=== PATIENT | male | born 1965 ===

== ENCOUNTER 2017-07-05 06:48 | Day surgery (SDC) | payer MEDICARE ==
[2017-06-30 12:36] VITALS: BMI 27.8
[2017-07-05] MEDS ORDERED: Propofol 10 mg/ml Inj (20 ML) ONE (09:50)
[2017-07-05] MEDS ORDERED: Lactated Ringer's 1,000 ML IV ONE (09:53)
[2017-07-05 10:26] VITALS: TEMP 97.8
[2017-07-05 11:06] VITALS: BP 109/66; PULSE 67; RESP 14; O2SAT 99
== END 2017-07-05 11:15 | disposition home or self-care (01) ==
LOC: C.ENDO 06:48
PROVIDERS: ATTEND Internal Medicine Gastroenterology
DX: K29.70 Gastritis, unspecified, without bleeding (principal); K21.9 Gastro-esophageal reflux disease without esophagitis
CPT/HCPCS: 43239; 82948; 88305; J2001; J2704; J7120

== ENCOUNTER 2018-02-23 11:22 | Day surgery (SDC) | payer MEDICARE ==
[2018-02-19 13:30] VITALS: BMI 32.9
[2018-02-23 12:55] VITALS: O2SAT 100
[2018-02-23] MEDS ORDERED: Midazolam 2 MG/2 ML VIAL ONE (13:16)
[2018-02-23] MEDS ORDERED: Propofol 10 mg/ml Inj (20 ML) ONE (13:16)
[2018-02-23] MEDS ORDERED: ceFAZolin 1 gm FROZEN Premix 2 GM/100 ML ML IVPB ONE (13:18)
[2018-02-23] MEDS ORDERED: HYDROmorphone 0.5 mg/0.5 ml ISec IVP PRN (13:57)
--- NOTE | 2018-02-23 15:15 | PCM.SURG1 ---
Surgeon's Initial Post Op Note - Surgeon's Notes Surgeon: Dr Moore Glove Maker: Dr Gonzalez PGY4, [place] MS3 Type of Anesthesia: General Endo Pre-Operative Diagnosis: cholelithiasis Operative Findings: see report Post-Operative Diagnosis: as above Operation Performed: Laparoscopic cholecystectomy Specimen/Specimens Removed: gallbladder Estimated Blood Loss: EBL {In ML}: 10 Blood Products Given: N/A Drains Used: No Drains Post-Op Condition: Good Date of Surgery/Procedure: 02/23/18 Time of Surgery/Procedure: 15:14
[2018-02-23 16:17] VITALS: BP 130/60; PULSE 86; RESP 18; TEMP 98
--- NOTE | 2018-02-24 03:35 | OP ---
PROCEDURE DATE: 02/23/2018 OPERATION: Laparoscopic cholecystectomy. INDICATION: Symptomatic cholelithiasis. SURGEON: Alia Moore MD ASSISTANTS: Javon Gonzalez DO, PGY-4 and Johnna Echavarria MS-3 ESTIMATED BLOOD LOSS: 10 mL. DESCRIPTION OF PROCEDURE: The patient was brought to the operating room. Placed in supine position. After induction of general anesthesia, the patient was prepped and draped in the normal sterile fashion. A time-out was performed confirming the correct patient and current operation, and that all consents were signed and obtained. A Veress needle was inserted through the umbilicus. Air was insufflated. The abdomen was in appropriate opening pressure of 5 mmHg. After the abdomen was appropriately insufflated to a steady pressure of 15 mmHg, a 12-mm bladed trocar was inserted to the umbilicus through a 1-cm incision made with an 11-blade. At this point, the camera was entered into the abdomen. The surrounding bowel and tissue were inspected. There was no sign of any injury. The rest of the abdomen was assessed. At this point, attention was directed towards the right upper quadrant. The patient was placed in reverse Trendelenburg. A second 11-mm port was placed subxiphoid, followed by two 5-mm ports along the right anterior axillary line. Two graspers were inserted by the assistant press operator, and the gallbladder was retracted caudally. Attention was directed towards the cystic triangle. There were some minor omental adhesions in this area, which were taken down bluntly with maryland dissector. Blunt dissection was used to separate out the structures leading into the gallbladder. There was some very minimal degree of inflammation and fibrosis, and the critical view was easily obtained. We identified one single solitary structure that was presumed to be the cystic duct entering into the gallbladder, just posterior to that was an additional structure which was clearly pulsatile also entering into the gallbladder. Posterior to this, you could see the liver bed, confirming that we did in fact have a critical view. A 10-mm clip team foreman was placed. Two clips were placed proximally on the artery and one on the gallbladder side, and then this was cut using sharp dissection. The same procedure was then carried out with the cystic duct, two proximally and one distally on the gallbladder side. These were also clipped. There was no significant bleeding. Hemostasis was achieved. The gallbladder was slowly dissected off the liver bed out of the gallbladder fossa using electrocaudery. There was minor spillage of bile and small stone contents, but the abdomen was copiously irrigated, and all of the fluids and any identifiable stones were removed. Once the gallbladder was dissected off the liver bed, it was inserted into the EndoCatch bag and then delivered out through the umbilicus. The abdomen was then re-insufflated. The underside of the liver and the gallbladder fossa was reassessed for bleeding, which there was none. The omentum and surrounding small bowel as well as the trocars sites were all inspected for any additional sites of bleeding, which there was none. The abdomen was then desufflated. The umbilical port was then closed using a 0 Vicryl on a UR-6 needle under direct visualization with two interrupted sutures. At this point, the fascia was closed. A 4-0 Monocryl was used to close all four ports in an interrupted fashion. Then, Steri-Strips and sterile dressings were applied. The patient tolerated the procedure well and was extubated successfully and transferred to PACU in stable condition. EBL was 10 mL. There were no complications. The gallbladder was sent out in formalin for specimen. Javon Gonzalez DO Alia Moore MD MTDMarquise
== END 2018-02-23 18:31 | disposition home or self-care (01) ==
LOC: C.SDS 11:22
PROVIDERS: ATTEND Specialist
DX: K80.20 Calculus of gallbladder without cholecystitis without obstruction (principal)
CPT/HCPCS: 47562; 82948; J0690; J2250; J2704; J3010